=== PATIENT | female | born 1950 | race Two or more races ===

== ENCOUNTER 2024-07-04 07:31 | Day surgery (SDC) | payer MEDICARE, OTHER ==
[2024-07-02 13:12] LABS: Basophils # (auto) 0.1 10 ^3/uL (0-0.2); Eosinophils # (auto) 0.3 10 ^3/uL (0-0.8); Eosinophils % (auto) 3.1 % (0.0-7.0); Hematocrit 41.8 % (36.0-46.0); Hemoglobin 13.9 g/dL (12.2-16.2); Lymphocytes # (auto) 1.8 10 ^3/uL (0.4-5.4); Lymphocytes % (auto) 20.4 % (10.0-50.0); Mean Corpuscular Hgb Conc. 33.3 g/dL (32.0-36.0); Mean Corpuscular Volume 95.9 fL (80.0-100.0); Monocytes # (auto) 0.6 10 ^3/uL (0-1.3); Neutrophils % (auto) 68.5 % (37.0-80.0); Nucleated Red Blood Cells % 0.1 %; Platelet Count (auto) 271 10^3/uL (140-450); Red Blood Cells 4.35 10^6/uL (4.0-5.20); Red Cell Distribution Width 13.1 % (11.8-14.3); White Blood Cell 8.8 10^3/uL (4.4-10.8)
[2024-07-02 13:23] LABS: Urine Bacteria MOD /hpf (None Seen); Urine Blood 1+ /uL (Negative); Urine Budding Yeast MANY /hpf (None Seen); Urine Clarity Ex.Turbid (Clear); Urine Color Light-Orange (Yellow); Urine Protein, UAD TRACE (Negative); Urine Specific Gravity 1.015 (1.001-1.035); Urine Urobilinogen Normal (Negative); Urine WBC 1136 /hpf (0 - 5); Urine WBC Clumps PRESENT /hpf (None Seen)
[2024-07-02 13:45] LABS: INR 1.15 (0.9-1.15); Partial Thromboplastin Time 24.5 SEC (24.5-34.5); Prothrombin Time 12.3 sec (9.3-11.8)
[2024-07-02 14:06] LABS: Alanine Aminotransferase 18 U/L (7-40); Albumin 4.3 g/dL (3.2-4.8); Alkaline Phosphatase 110 U/L (46-116); Anion Gap 8 (5-15); Aspartate Aminotransferase 14 U/L (13-40); BUN/Creatinine Ratio 11.1 (10.0-20.0); Bilirubin, Total 0.5 mg/dL (0.2-1.0); Blood Urea Nitrogen 11 mg/dL (9-23); Calcium 9.6 mg/dL (8.7-10.4); Carbon Dioxide 26 mmol/L (20-30); Chloride 108 mmol/L (98-107); Glucose 71 mg/dL (74-106); Potassium 3.8 mmol/L (3.5-5.1); Sodium 142 mmol/L (136-145); Total Protein 6.9 g/dL (5.7-8.2)
[~2024-07-04] VITALS: Ht 162.6 cm; Wt 83.9 kg
[~2024-07-04 07:31] MED LIST: ATEN50TA80 PO; ATOR10TA PO; COEN100C37 PO; DOCU-111 PO; EZET10TA22 PO; GABA-1308 PO; GLYB2.5T9 PO; MAGNTAB16 OR; NIAC500T89 OR; PAR20T PO; RANO10003 PO
[2024-07-04] MEDS ORDERED: fentaNYL CITRATE 100 MCG/2 ML VL ONE (09:23)
[2024-07-04] MEDS ORDERED: MEPERIDINE HCL (50 MG/ML) 1 ML VIAL ONE (09:23)
[2024-07-04] MEDS ORDERED: MIDAZOLAM HCL 2MG/2ML 2ml VIAL (1mg/ml) ONE (09:24)
[2024-07-04] MEDS ORDERED: ONDANSETRON HCL 4 MG/2 ML VIAL ONE (09:24)
[2024-07-04] MEDS ORDERED: PROPOFOL 10 MG/ML 20 ML IV ONE (09:24)
[2024-07-04] MEDS ORDERED: LIDOCAINE 1% INJ PF 5ML AMP ONE (09:24)
[2024-07-04 10:59] VITALS: PULSE 97; RESP 21; TEMP 98.3; O2SAT 94
[2024-07-04 11:26] VITALS: BP 135/58; PULSE 94; RESP 16; O2SAT 94
== END 2024-07-04 11:45 | disposition home or self-care (01) ==
LOC: GI 07:31
PROVIDERS: ATTEND Internal Medicine Gastroenterology
DX: R19.5 Other fecal abnormalities (principal); D12.3 Benign neoplasm of transverse colon; K57.30 Diverticulosis of large intestine without perforation or abscess without bleeding; K64.8 Other hemorrhoids; I10 Essential (primary) hypertension; E11.40 Type 2 diabetes mellitus with diabetic neuropathy, unspecified; E78.5 Hyperlipidemia, unspecified; K21.9 Gastro-esophageal reflux disease without esophagitis; E66.01 Morbid (severe) obesity due to excess calories; F32.A Depression, unspecified; Z90.710 Acquired absence of both cervix and uterus; Z90.49 Acquired absence of other specified parts of digestive tract; Z68.31 Body mass index [BMI] 31.0-31.9, adult
CPT/HCPCS: 36415; 45380; 45381; 45385; 80053; 81001; 82962; 85025; 85610; 85730; 88305; J2175; J2250; J2405; J2704; J3010; J7030